=== PATIENT | female | born 1975 | race Asian ===

== ENCOUNTER → 2017-03-26 | Outpatient (CLI) | payer OTHER | END | disposition home or self-care (01) | LOC: CFH 08:19 | PROVIDERS: ATTEND Obstetrics & Gynecology | DX: Z12.31 Encounter for screening mammogram for malignant neoplasm of breast (principal) | CPT/HCPCS: 77063; G0202 ==

== ENCOUNTER → 2018-03-21 | Outpatient (CLI) | payer OTHER ==
[2018-03-21 08:28] LABS: BASOPHILS # (AUTO) 0.03 x10^3/uL (0-0.1); BASOPHILS % (AUTO) 0 % (0-1); EOSINOPHILS # (AUTO) 0.22 x10^3/uL (0-0.4); EOSINOPHILS % (AUTO) 2 % (1-7); LYMPHOCYTES % (AUTO) 24 % (22-44); MD NO; MEAN CORPUSCULAR HEMOGLOBIN 30.9 pg (27.0-34.8); MEAN CORPUSCULAR HGB CONC 33.9 g/dL (32.4-35.8); MEAN PLATELET VOLUME 7.9 fL (7.4-10.4); MONOCYTES # (AUTO) 0.43 x10^3/uL (0.2-0.8); MONOCYTES % (AUTO) 5 % (2-9); NEUTROPHILS # (AUTO) 6.17 x10^3/uL (1.8-6.8); NEUTROPHILS % (AUTO) 68 % (42-75); PLATELET COUNT 285 x10^3/uL (130-400); RED BLOOD COUNT 4.72 x10^6/uL (3.82-5.3); RED CELL DISTRIBUTION WIDTH 13.1 % (9.6-15.2)
[2018-03-21 08:38] LABS: ALBUMIN 3.6 g/dL (3.4-5.0); ANION GAP 8 mmol/L (5-15); CALCIUM 8.7 mg/dL (8.5-10.1); CHLORIDE 104 mmol/L (98-107)
[2018-03-21 08:53] LABS: ALANINE AMINOTRANSFERASE 18 U/L (12-78); ALKALINE PHOSPHATASE 35 U/L (45-117); BILIRUBIN,TOTAL 0.5 mg/dL (0.2-1.0); CHOL/HDL RATIO 1.7; CHOLESTEROL, TOTAL 173 mg/dL (140-239); FREE T4 (FREE THYROXINE) 0.87 ng/dL (0.76-1.46); HDL CHOL % 59 % (28-40); HDL CHOLESTEROL (DIRECT) 102 mg/dL (40-60); LDL CHOLESTEROL,CALCULATED 45 mg/dL (54-169); LDL/HDL RATIO 0.4 (0.5-3.0); TRIGLYCERIDES 128 mg/dL (50-200); VLDL CHOLESTEROL 26 mg/dL (0-25)
== END | disposition home or self-care (01) ==
LOC: LAB 08:08
PROVIDERS: ATTEND Family Medicine
DX: Z00.01 Encounter for general adult medical examination with abnormal findings (principal); E55.9 Vitamin D deficiency, unspecified; K21.9 Gastro-esophageal reflux disease without esophagitis; Z85.3 Personal history of malignant neoplasm of breast
CPT/HCPCS: 36415; 80053; 80061; 82306; 84439; 84443; 84481; 85025

== ENCOUNTER → 2018-03-27 | Outpatient (CLI) | payer OTHER | END | disposition home or self-care (01) | LOC: CFH 07:15 | PROVIDERS: ATTEND Family Medicine | DX: Z12.31 Encounter for screening mammogram for malignant neoplasm of breast (principal); Z80.3 Family history of malignant neoplasm of breast | CPT/HCPCS: 77063; 77067 ==

== ENCOUNTER → 2018-08-27 | Outpatient (CLI) | payer OTHER | END | disposition home or self-care (01) | LOC: LAB 18:20 | PROVIDERS: ATTEND Emergency Medicine | DX: R10.0 Acute abdomen (principal) | CPT/HCPCS: 87046; 87177; 87209; 87427; 89055 ==

== ENCOUNTER → 2018-09-28 | Outpatient (CLI) | payer OTHER | END | disposition home or self-care (01) | LOC: LAB 16:36 | PROVIDERS: ATTEND Family Medicine | DX: E55.9 Vitamin D deficiency, unspecified (principal) | CPT/HCPCS: 36415; 82306 ==

== ENCOUNTER → 2018-10-29 | Outpatient (CLI) | payer OTHER | END | disposition home or self-care (01) | LOC: CFH 16:03 | PROVIDERS: ATTEND Family Medicine | DX: N88.2 Stricture and stenosis of cervix uteri (principal); Q51.20 Other doubling of uterus, unspecified | CPT/HCPCS: 76830 ==

== ENCOUNTER 2018-12-07 16:38 | Outpatient (CLI) | payer OTHER | END 2018-12-07 23:59 | disposition home or self-care (01) | LOC: RAD 16:38 | PROVIDERS: ATTEND Internal Medicine Hematology & Oncology | DX: R76.12 Nonspecific reaction to cell mediated immunity measurement of gamma interferon antigen response without active tuberculosis (principal) ==

== ENCOUNTER → 2019-02-18 | Outpatient (CLI) | payer OTHER ==
[2019-02-18 14:25] LABS: ALBUMIN 3.5 g/dL (3.4-5.0); BILIRUBIN, DIRECT 0.2 mg/dL (0.1-0.2)
[2019-02-18 14:27] LABS: BASOPHILS # (AUTO) 0.05 x10^3/uL (0-0.1); BASOPHILS % (AUTO) 1 % (0-1); EOSINOPHILS # (AUTO) 0.25 x10^3/uL (0-0.4); EOSINOPHILS % (AUTO) 5 % (1-7); LYMPHOCYTES % (AUTO) 29 % (22-44); MD NO; MEAN CORPUSCULAR HEMOGLOBIN 30.8 pg (27.0-34.8); MEAN CORPUSCULAR HGB CONC 33.4 g/dL (32.4-35.8); MEAN CORPUSCULAR VOLUME 92.2 fL (80-100); MEAN PLATELET VOLUME 7.7 fL (7.4-10.4); MONOCYTES # (AUTO) 0.26 x10^3/uL (0.2-0.8); MONOCYTES % (AUTO) 5 % (2-9); NEUTROPHILS # (AUTO) 3.34 x10^3/uL (1.8-6.8); NEUTROPHILS % (AUTO) 61 % (42-75); PLATELET COUNT 249 x10^3/uL (130-400); RED BLOOD COUNT 4.75 x10^6/uL (3.82-5.3); RED CELL DISTRIBUTION WIDTH 13.8 % (9.6-15.2)
[2019-02-18 14:29] LABS: BILIRUBIN,INDIRECT 0.2 mg/dL (0.0-2.0); BILIRUBIN,TOTAL 0.4 mg/dL (0.2-1.0); TOTAL PROTEIN 7.7 g/dL (6.4-8.2)
== END | disposition home or self-care (01) ==
LOC: LAB 13:54
PROVIDERS: ATTEND Registered Nurse
DX: A15.8 Other respiratory tuberculosis (principal); E55.9 Vitamin D deficiency, unspecified
CPT/HCPCS: 36415; 80076; 82306; 85025

== ENCOUNTER → 2019-03-08 | Outpatient (CLI) | payer OTHER ==
[2019-03-08 08:14] LABS: ALANINE AMINOTRANSFERASE 226 U/L (12-78); ALBUMIN 3.1 g/dL (3.4-5.0); ANION GAP 9 mmol/L (5-15); BILIRUBIN, DIRECT 0.1 mg/dL (0.1-0.2); CALCIUM 8.5 mg/dL (8.5-10.1); CHLORIDE 106 mmol/L (98-107); CREATININE 0.83 mg/dL (0.55-1.02)
[2019-03-08 08:16] LABS: ALKALINE PHOSPHATASE 36 U/L (45-117); BILIRUBIN,TOTAL 0.5 mg/dL (0.2-1.0); TOTAL PROTEIN 6.8 g/dL (6.4-8.2)
== END | disposition home or self-care (01) ==
LOC: LAB 07:48
PROVIDERS: ATTEND Family Medicine
DX: R79.9 Abnormal finding of blood chemistry, unspecified (principal)
CPT/HCPCS: 36415; 80053; 82248

== ENCOUNTER → 2020-06-22 | Outpatient (CLI) | payer OTHER | END | disposition home or self-care (01) | LOC: CFH 12:08 | PROVIDERS: ATTEND Family Medicine | DX: Z12.31 Encounter for screening mammogram for malignant neoplasm of breast (principal) | CPT/HCPCS: 77063; 77067 ==

== ENCOUNTER → 2020-06-24 | Outpatient (CLI) | payer OTHER ==
[2020-06-24 08:54] LABS: ALBUMIN 3.3 g/dL (3.4-5.0); ANION GAP 3 mmol/L (5-15); CALCIUM 8.9 mg/dL (8.5-10.1); CHLORIDE 106 mmol/L (98-107)
[2020-06-24 08:57] LABS: ALANINE AMINOTRANSFERASE 18 U/L (12-78); ALKALINE PHOSPHATASE 47 U/L (45-117); BILIRUBIN,TOTAL 0.4 mg/dL (0.2-1.0); CHOL/HDL RATIO 2.1; CHOLESTEROL, TOTAL 206 mg/dL (140-239); CREATININE 0.85 mg/dL (0.55-1.02); HDL CHOL % 47 % (28-40); HDL CHOLESTEROL (DIRECT) 97 mg/dL (40-60); LDL CHOLESTEROL,CALCULATED 95 mg/dL (54-169); TOTAL PROTEIN 7.5 g/dL (6.4-8.2); TRIGLYCERIDES 71 mg/dL (50-200); VLDL CHOLESTEROL 14 mg/dL (0-25)
[2020-06-24 08:59] LABS: MICROSCOPIC INDICATED
[2020-06-24 09:01] LABS: BASOPHILS % (AUTO) 1 % (0-1); EOSINOPHILS % (AUTO) 12 % (1-7); LYMPHOCYTES % (AUTO) 43 % (22-44); MEAN CORPUSCULAR HEMOGLOBIN 30.7 pg (27.0-34.8); MEAN CORPUSCULAR HGB CONC 33.5 g/dL (32.4-35.8); MEAN PLATELET VOLUME 8.2 fL (7.4-10.4); MONOCYTES % (AUTO) 6 % (2-9); NEUTROPHILS % (AUTO) 38 % (42-75); PLATELET COUNT 300 x10^3/uL (130-400); RED BLOOD COUNT 4.53 x10^6/uL (3.82-5.3); RED CELL DISTRIBUTION WIDTH 12.9 % (9.6-15.2)
[2020-06-24 09:21] LABS: MD NO
== END | disposition home or self-care (01) ==
LOC: LAB 08:08
PROVIDERS: ATTEND Family Medicine
DX: Z00.00 Encounter for general adult medical examination without abnormal findings (principal); E55.9 Vitamin D deficiency, unspecified
CPT/HCPCS: 36415; 80053; 80061; 81001; 82306; 83036; 85025

== ENCOUNTER 2021-04-20 14:46 | Emergency (ER) | payer OTHER ==
[~2021-04-20] VITALS: Ht 157.5 cm; Wt 58.0 kg
[2021-04-20 15:04] VITALS: BP 131/95
--- NOTE | 2021-04-20 15:16 | NUR ---
Patient given discharge instructions and they have confirmed that they understand the instructions. Patient ambulatory with steady gait.
== END 2021-04-20 15:18 | disposition home or self-care (01) ==
LOC: ED 15:12
DX: Z20.822 Contact with and (suspected) exposure to COVID-19 (principal); J45.909 Unspecified asthma, uncomplicated
CPT/HCPCS: 99283; U0003; U0005